=== PATIENT | male | born 1995 | race Hispanic/Latino ===

== ENCOUNTER → 2024-07-18 | Outpatient (CLI) | payer BC ==
--- NOTE | 2024-07-19 07:53 | HMCSR ---
APPROVED REPORT EXAM: Two-dimensional and M-mode echocardiogram with Doppler and color Doppler. INDICATION ICD: R00.2 Palpitations 2D Dimensions RVDd3.6 cmLVEF(%)64.9 (>50%)LVED Vol(simp.)108.0 mL IVSd0.7 (0.7-1.1cm)FS(%)36 %LVES Vol(simp.)43.0 mL LVDd5.0 (3.8-5.6cm)Ao Root(2D)2.8 (2.0-3.7cm)LVEF(%, simp.)60 % PWd0.8 (0.7-1.1cm)LVOT diam2.1 (1.8-2.4cm)LA ESV INDEX (BP)20.75 mL/m2 LVDs3.2 (2.5-4.0cm)IVC diam1.7 cm Aortic Valve AoV Vmax1.1 m/Felipe Peak GR4.6 mmHgLVOT Vmax0.9 m/s AoV VTI0.2 mAo Mean GR2.6 mmHgLVOT VTI0.20 m LENNY (VMAX)2.7 cm2AVA (VTI) 2.7 cm2 Mitral Valve MV E Vmax86.3 cm/sDECEL Keox659 ms MV A Vmax38.7 cm/s E/A ratio2.2 TDI E/E' Medial7.6E/E' Lateral6.1 Pulmonary Valve PV Vmax0.8 m/sPV VTI0.23 mPV Mean GR2 mmHg PV Peak GR2.8 mmHg Tricuspid Valve RAP (EST) 3 mmHg Left Ventricle The left ventricle is normal size. There is normal LV segmental wall motion. There is normal left jsu tricular wall thickness. LVEF is 60-65%. The left ventricular diastolic function is normal. Right Ventricle The right ventricle is normal size. The right ventricular systolic function is normal. Atria The left atrium size is normal. The right atrium size is normal. Aortic Valve Aortic valve is trileaflet. The aortic valve opens well. No aortic regurgitation is present. There is no aortic valvular stenosis. Mitral Valve Mitral valve leaflets appear normal. There is no evidence of significant mitral regurgitation. There is no mitral valve stenosis. Tricuspid Valve The tricuspid valve leaflets appear normal. There is no tricuspid valve regurgitation noted. Pulmonic Valve The pulmonary valve is normal in structure. There is no pulmonic valvular regurgitation. Great Vessels The aortic root is normal in size. The IVC is normal in size and collapses >50% with inspiration. Pericardium There is no pericardial effusion. Conclusion LVEF is 60-65%.
== END | disposition home or self-care (01) ==
LOC: SHCH 08:23
PROVIDERS: ATTEND Internal Medicine Cardiovascular Disease
DX: R00.2 Palpitations (principal)
CPT/HCPCS: 93306